=== PATIENT | male | born 1970 | race Caucasian/White ===

== ENCOUNTER 2019-09-27 13:34 | Emergency (ER) | payer OTHER ==
[~2019-09-27] VITALS: Ht 177.8 cm; Wt 108.1 kg
[2019-09-27 13:35] VITALS: BP 120/85
[2019-09-27] MEDS ORDERED: DIPH,PERTUSS(ACELL),TET VAC/PF 0.5 ML IM-VACC ONE ×2 (14:00→14:06)
[2019-09-27] MEDS ORDERED: LIDOCAINE-MPF 1%, 5ML INFIL ONE (14:00)
[2019-09-27] MEDS ORDERED: LIDOCAINE-MPF 1%, 5ML ONE (14:06)
[2019-09-27] MEDS ORDERED: NEOSPORIN OINT. PKT 1 PACKET ONE (14:56)
== END 2019-09-27 15:10 | disposition home or self-care (01) ==
LOC: ED 14:30
DX: S61.211A Laceration without foreign body of left index finger without damage to nail, initial encounter (principal); I10 Essential (primary) hypertension; W26.0XXA Contact with knife, initial encounter; Y93.89 Activity, other specified; Y92.098 Other place in other non-institutional residence as the place of occurrence of the external cause; Y99.8 Other external cause status
CPT/HCPCS: 12002; 90715; 99283